=== PATIENT | male | born 1950 | race Caucasian/White ===

== ENCOUNTER 2018-07-16 13:34 | Emergency (ER) | payer OTHER ==
[2018-07-16] MEDS ORDERED: ONDANSETRON DISINTEGRATING 4 MG TAB PO ONE (14:11)
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
[2018-07-16 16:10] VITALS: BP 133/89
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
== END 2018-07-16 16:08 | disposition home or self-care (01) ==
DX: S06.5X9A Traumatic subdural hemorrhage with loss of consciousness of unspecified duration, initial encounter (principal); S20.212A Contusion of left front wall of thorax, initial encounter; S69.91XA Unspecified injury of right wrist, hand and finger(s), initial encounter; S70.11XA Contusion of right thigh, initial encounter; V28.0XXA Motorcycle driver injured in noncollision transport accident in nontraffic accident, initial encounter; Y99.9 Unspecified external cause status
CPT/HCPCS: L3925